=== PATIENT | male | born 1990 | race Caucasian/White ===

== ENCOUNTER → 2016-06-18 | Outpatient (CLI) | payer SELFPAY ==
[~2016-06-18] MED LIST: CYCL10TA9 PO; HYDR1TAB PO; IBUP800T26 PO
--- OUTSIDE RECORDS SUMMARY | 2016-06-18 10:51 | XMS REPORT ---
Author Author BRENDON VALLEJO Organization [employer] Address Unknown Phone Unavailable Care Team Providers Care Raise Driller Name Role Phone BRENDON VALLEJO CP Unavailable Allergies No Known Allergies Problems Problem Type Condition Code Onset Dates Condition Status Assessment Anxiety disorder, unspecified F41.9 Active Assessment Stimulant dependence F15.20 Active Problem Stimulant dependence F15.20 Active Problem Screening examination for venereal disease V74.5 Active Problem Anxiety disorder, unspecified F41.9 Active Problem Pain in joint, lower leg 719.46 Active Problem Cervicalgia 723.1 Active Problem Insomnia, unspecified 780.52 Active Problem Lumbago 724.2 Active Medications No Known Medications Procedures Procedure Coding System Code Date Psych diagnostic evaluation, established patient CPT-4 11888 Jun 14, 2015 Results No Known Results Summary Purpose [employer] Submission
--- NOTE | 2016-06-18 11:20 | Diagnostic Imaging Report ---
PROCEDURE: US Thyroid. TECHNIQUE: Multiple real-time grayscale images were obtained of the thyroid in various projections. INDICATION: Hypothyroidism. COMPARISON: None. DISCUSSION: The thyroid gland is mildly enlarged. The right thyroid measures 5.8 x 1.8 x 2.1 cm. The left thyroid measures 5.8 x 1.7 x 2.1 cm. The thyroid gland is normal in echotexture. No discrete nodule identified. Normal color Doppler blood flow. No abnormal adjacent lymph nodes identified. IMPRESSION: 1. Thyromegaly. No discrete nodule identified. Dictated by: Dictated on workstation # [id number]
== END ==
LOC: RAD 10:47
PROVIDERS: ATTEND Nurse Practitioner Community Health
DX: E05.90 Thyrotoxicosis, unspecified without thyrotoxic crisis or storm (principal)
CPT/HCPCS: 76536